=== PATIENT | male | born 1940 | race Caucasian/White ===

== ENCOUNTER 2023-05-29 09:08 | Emergency (ER) | payer MEDICARE, OTHER ==
[~2023-05-29] VITALS: Ht 170.2 cm; Wt 77.2 kg
[2023-05-29 09:08] VITALS: BP 143/84
== END 2023-05-29 10:50 | disposition home or self-care (01) ==
LOC: ER 09:08
DX: S09.8XXA Other specified injuries of head, initial encounter (principal); W18.39XA Other fall on same level, initial encounter; Y93.E1 Activity, personal bathing and showering; Y92.89 Other specified places as the place of occurrence of the external cause; Y99.8 Other external cause status
CPT/HCPCS: 99284